=== PATIENT | female | born 1960 | race Caucasian/White ===

== ENCOUNTER 2017-04-10 17:02 | Emergency (ER) | payer OTHER | END 2017-04-10 19:25 | disposition home or self-care (01) | LOC: FER 17:02 | DX: S63.92XA Sprain of unspecified part of left wrist and hand, initial encounter (principal); I10 Essential (primary) hypertension; Z79.899 Other long term (current) drug therapy; W01.0XXA Fall on same level from slipping, tripping and stumbling without subsequent striking against object, initial encounter; Y92.009 Unspecified place in unspecified non-institutional (private) residence as the place of occurrence of the external cause | CPT/HCPCS: 73110; 73130; 99283 ==

== ENCOUNTER 2020-11-12 15:18 | Emergency (ER) | payer OTHER ==
[2020-11-12 16:39] LABS: BASOPHIL 0.6 % (0-2); EOSINOPHIL 2.8 % (0-5); HCT 39.1 % (37.0-47.0); HGB 12.7 g/dl (12.5-16.0); LYMPHOCYTE 27.4 % (15-48); MCHC 32.5 g/dL (32.0-36.0); MCV 95.4 fL (78.0-100.0); MONOCYTE 11.1 % (0-12); MPV 9.2 fL (6.0-9.5); NEUTROPHIL 57.8 % (41-80); NRBC 0; PLT 285 K/uL (150-400); RDW 12.9 % (11.5-14.0); WBC 6.5 K/uL (4.0-10.5)
[2020-11-12 17:06] LABS: ALBUMIN 3.2 g/dL (3.4-5.0); BILIRUBIN - TOTAL 0.5 mg/dL (0.2-1.0); BUN/CREAT RATIO (CALC) 16.1 RATIO; CREATININE 0.87 mg/dL (0.51-0.95); GLOBULIN (CALCULATION) 3.4 g/dL; POTASSIUM 3.6 mmol/L (3.5-5.1); TOTAL PROTEIN 6.6 g/dL (6.4-8.2)
== END 2020-11-12 18:48 | disposition home or self-care (01) ==
LOC: FER 15:18
PROVIDERS: Nurse Practitioner Family
DX: S90.01XA Contusion of right ankle, initial encounter (principal); S70.12XA Contusion of left thigh, initial encounter; S70.02XA Contusion of left hip, initial encounter; S30.1XXA Contusion of abdominal wall, initial encounter; S00.432A Contusion of left ear, initial encounter; S80.212A Abrasion, left knee, initial encounter; S80.211A Abrasion, right knee, initial encounter; K59.00 Constipation, unspecified; R60.0 Localized edema; M54.5 Low back pain; M79.651 Pain in right thigh; M25.551 Pain in right hip; I10 Essential (primary) hypertension; J44.9 Chronic obstructive pulmonary disease, unspecified; W19.XXXA Unspecified fall, initial encounter
CPT/HCPCS: 36415; 80053; 85025; J7030; Q9967

== ENCOUNTER 2021-03-08 15:22 | Emergency (ER) | payer OTHER ==
[2021-03-08] MEDS ORDERED: CEPHALEXIN500 MG PO (18:10)
== END 2021-03-08 19:20 | disposition home or self-care (01) ==
LOC: FER 15:22
DX: S09.90XA Unspecified injury of head, initial encounter (principal); L02.811 Cutaneous abscess of head [any part, except face]; Z23 Encounter for immunization; F17.200 Nicotine dependence, unspecified, uncomplicated; Z88.6 Allergy status to analgesic agent; Z91.041 Radiographic dye allergy status; W06.XXXA Fall from bed, initial encounter; Y92.009 Unspecified place in unspecified non-institutional (private) residence as the place of occurrence of the external cause
CPT/HCPCS: 70450; 90471; 90715; J3370; J7050

== ENCOUNTER 2021-05-25 14:46 | Emergency (ER) | payer OTHER ==
[~2021-05-25 14:46] MED LIST: CEPHALEXIN500 MG PO
[2021-05-25 15:46] LABS: BASOPHIL 0.2 % (0-2); EOSINOPHIL 0.1 % (0-5); HCT 47.4 % (37.0-47.0); HGB 15.5 g/dl (12.5-16.0); MCH 28.7 pg (25.0-31.0); MCHC 32.7 g/dL (32.0-36.0); MCV 87.6 fL (78.0-100.0); MONOCYTE 8.5 % (0-12); MPV 9.8 fL (6.0-9.5); NEUTROPHIL 80.1 % (41-80); NRBC 0; PLT 384 K/uL (150-400); RBC 5.41 M/uL (4.20-5.40); RDW 13.8 % (11.5-14.0); WBC 10.2 K/uL (4.0-10.5)
[2021-05-25 15:50] LABS: LYMPHOCYTE 10.3 % (15-48)
[2021-05-25 15:51] LABS: ALBUMIN 2.9 g/dL (3.4-5.0); BILIRUBIN - TOTAL 0.5 mg/dL (0.2-1.0); BUN/CREAT RATIO (CALC) 23.8 RATIO; CREATININE 1.01 mg/dL (0.51-0.95); GLOBULIN (CALCULATION) 4.3 g/dL; POTASSIUM 3.3 mmol/L (3.5-5.1); TOTAL PROTEIN 7.2 g/dL (6.4-8.2)
[2021-05-25] MEDS ORDERED: AZITHROMYCIN250 MG PO (16:46)
[2021-05-25] MEDS ORDERED: CEFPODOXIME PR200 MG PO ×2 (16:48→16:50)
[2021-05-25] MEDS ORDERED: COMPAZINE10 MG PO (16:53)
[2021-05-25 17:30] LABS: CORONAVIRUS 2019 SARS-COV-2 POSITIVE (NEGATIVE); INFLUENZA A NAA NEGATIVE (NEGATIVE)
[2021-05-25] MEDS ORDERED: PREDNISONE 20MG20 MG PO (17:40)
== END 2021-05-25 19:10 | disposition home or self-care (01) ==
LOC: FER 14:46
PROVIDERS: Internal Medicine
DX: U07.1 COVID-19 (principal); J12.82 Pneumonia due to coronavirus disease 2019; N17.9 Acute kidney failure, unspecified; E87.6 Hypokalemia; I25.810 Atherosclerosis of coronary artery bypass graft(s) without angina pectoris; I10 Essential (primary) hypertension; J44.9 Chronic obstructive pulmonary disease, unspecified; Z87.891 Personal history of nicotine dependence
CPT/HCPCS: 36415; 71045; 80053; 84484; 85025; 93005; J0456; J0696; J0780; J2405; J2930; J7030; J7050; U0002